=== PATIENT | female | born 1975 | race African-American/Black ===

== ENCOUNTER 2018-11-01 00:50 | Emergency (ER) | payer SELFPAY ==
[~2018-11-01] VITALS: Ht 167.6 cm; Wt 61.2 kg
[2018-11-01 01:15] VITALS: BP 134/91
[2018-11-01] MEDS ORDERED: ACETAMINOPHEN/CODEINE#3 (300/30mg) TAB PO ONE (05:15)
[2018-11-01] MEDS ORDERED: DexAMETHasone SOD PHOS 10MG/1ML VIAL INJ IM ONE (05:15)
== END 2018-11-01 05:48 | disposition home or self-care (01) ==
LOC: ER 00:57
DX: H66.93 Otitis media, unspecified, bilateral (principal)
CPT/HCPCS: 96372; 99283; J1100